=== PATIENT | female | born 1930 | race Caucasian/White ===

== ENCOUNTER 2016-08-21 18:36 | Inpatient (IN) | payer MEDICARE, OTHER ==
[~2016-08-21] VITALS: Ht 162.6 cm; Wt 41.5 kg
[~2016-08-21 18:36] MED LIST: ALLEGRA DPS180 MG PO; ASCORBIC ACID500 MG PO; CELEBREX DPS200 MG PO; COLACE-DPS100 MG PO; DAILY MULTIPLE1 EAC1 PO; DELTASONE DPS5 MG PO; DULCOLAX-DPS10 MG PR; DUONEB DPS3 ML IH; LASIX DPS20 MG PO; LISINOPRIL20 MG PO; LOVENOX DP40 MG/0.4 SQ; MAALOX DPS30 ML PO; METHOTREXATE2.5 MG PO; MIRALAX PACKET17 GM PO; MODAFINIL100 MG PO; MUCINEX600 MG PO; NITROSTAT0.4 MG SL; NUCYNTA50 MG PO; OMNICEF DPS300 MG PO; PLAQUENIL DPS200 MG PO; PREDNISONE5 MG PO; SENOKOT DPS8.6 MG PO; TYLENOL325 MG PO; VITAMIN D250000 UNIT PO; ZITHROMAX250 MG PO; ZOCOR DPS10 MG PO; ZOCOR10 MG PO
--- NOTE | 2016-08-22 06:20 | ER ---
ADMIT: 08/21/2016 RM/LOC: 520 [facility] MR#: [id number] [address] [address] SHREYASSUE Patel [address] [place] [address] Emergency Room Report SEX: F AGE: 86 : 1930 DATE: 08/21/2016 CHIEF COMPLAINT: Fall. HISTORY OF PRESENT ILLNESS: The patient is an 86-year-old female with rheumatoid arthritis, venous stasis disease legs associated with acute cellulitis followed by Dr. Guerra at the [facility] since being placed on Bactrim double-strength for cellulitis in her lower extremities, she has had increasing weakness, fatigue, and nausea. Dr. Guerra recommended stopping antibiotics today. She was walking to her bathroom tonight when she stumbled, fell, injuring her left ribs. Denies any head or neck injury, shortness of breath, or focal deficit. The patient does live alone with home health care. PAST MEDICAL HISTORY: ILLNESSES: Rheumatoid arthritis, narcolepsy, osteoporosis, vertebral compression fractures, hyperlipidemia, hyperparathyroidism, hypertension, DJD, low vitamin D, CHF, peripheral vascular disease, and venous stasis disease lower extremities. OPERATIONS: Right hip fracture status post total hip arthroplasty on the left, right hip pinning, tonsillectomy, and vertebroplasties. ALLERGIES: LISINOPRIL. MEDICATIONS: Please see nurse's MAR. SOCIAL HISTORY: , retired, lives alone with home health care. Nonsmoker and nondrinker. No illicit drugs. FAMILY HISTORY: Negative per chart review. REVIEW OF SYSTEMS: A 12-point review of systems negative for all other systems, illnesses, or operations except as outlined above. PHYSICAL EXAMINATION: VITAL SIGNS: Temp 98.1, pulse 101, respirations 16, BP 109/65, SaO2 of 93% on room air. GENERAL: Anxious, non-diaphoretic, without jaundice or icterus. HEENT: Normocephalic. No evidence of epistaxis, rhinorrhea, or otorrhea. NECK: Supple without lymphadenopathy or thyromegaly. CHEST: Clear. Breath sounds equal though diminished, exquisitely tender left lateral ribs. No evidence of flail chest. BACK: Erect. No CVA tenderness. EXTREMITIES: Pelvis nontender to compression or rock. Full range of motion of all extremities. Multiple contusions noted. Chronic venous stasis disease with cellulitis, lower extremities. NEUROLOGIC: EOMI. PERRLA. No evidence of drift, dysarthria, or ataxia. Gait is antalgic. MEDICAL DECISION MAKING: The patient did not tolerate road test due to hypotension and pain. Rib belt applied. Toradol, Dilaudid, and Zofran given IV ADMIT: 08/21/2016 RM/LOC: 520 [facility] MR#: [id number] [address] [place] [id number] SUE LITTLE [address] [place] [address] Emergency Room Report SEX: F AGE: 86 : 1930 with improvement of pain. Notified Dr. Kahn of admission, who requested floor to call for orders. CT chest showed nondisplaced left 6th and 7th rib fractures. No evidence of infiltrate. CBC remarkable for hemoglobin 10.6, WBC 11.4, lactic 1.8, CRP 1.01. UA pending. Creatinine 1.8, sodium 133. EKG showed sinus rhythm with right bundle-branch block, unchanged from previous. DIAGNOSES: 1. Mechanical fall. 2. Left posterior 6th and 7th rib fractures. 3. Osteoporosis. 4. Rheumatoid arthritis. 5. Venous stasis dermatitis with acute cellulitis, lower legs. RECOMMENDATIONS: Admit to inpatient telemetry for Dr. Kahn. ADMISSION/DISCHARGE CONDITION: Stable. The patient is a DNR. Dusty Hobbs MD/ raiza JOB #: [id number] CC: Lonnie Kahn MD, Attending Physician Lonnie Kahn MD, Family Physician
--- NOTE | 2016-08-25 17:48 | HP ---
ADMIT: 08/21/2016 RM/LOC: 520 [facility] [id number] [id number] [address] [address] SIDNEY SUE Kimberly [address] [place] [address] History and Physical SEX: F AGE: 86 : 1930 DATE OF SERVICE: CHIEF COMPLAINT: Nausea, vomiting, fall, and rib pain. HISTORY OF PRESENT ILLNESS: The patient is an 86-year-old female. She has past medical history of COPD, hypertension, hyperlipidemia, rheumatoid arthritis, on chronic immunosuppression with prednisone and methotrexate, who presents to [facility] Emergency Room after a fall at home. The patient had noted the last couple of days of nausea and vomiting, just not feeling well. She got up from the toilet and tripped the anterior left ribs on the bath tub. She had pain immediately, she was brought in to the emergency room. She was noted to be just mildly hypotensive. She was found to have some rib fractures posteriorly and was also noted to be in acute renal failure and she was admitted for further evaluation and treatment. This morning, the patient notes just does not feel hungry. The nausea and vomiting are better. No abdominal pain is noted. She does have that rib pain. Does hurt to take a deep breath because that does feel a little short of wind. No other bowel or bladder complaints are noted. She is continuing to see the Wound Care doctors in [place] and has noted problems with some infection of those legs, and recently was placed on Bactrim and notes started feeling bad shortly after taking that. PAST MEDICAL HISTORY: 1. COPD/emphysema. 2. Hypertension. 3. History of narcolepsy. 4. Hyperlipidemia. 5. History of right-sided ovarian mass/cyst. 6. Rheumatoid arthritis, on chronic immunosuppression with low-dose prednisone and methotrexate. 7. Osteoarthritis. 8. Fibromyalgia. 9. Osteoporosis with prior compression fracture, status post vertebroplasty. 10.Vitamin D deficiency. 11.Hyperparathyroidism, status post parathyroid adenoma resection in 2003. 12.History of prior pelvic fracture. 13.Prior history of tobacco abuse. 14.History of TIA. 15.History of lower extremity nonhealing wounds. Follows with Wound Care doctors out of [place]. ALLERGIES: SHE HAS ALLERGIES TO BACTRIM, PENICILLIN, AND TRAMADOL. HOME MEDICATIONS: 1. Lasix. 2. Modafinil. 3. MiraLax. 4. Prednisone. 5. Adore. ADMIT: 08/21/2016 RM/LOC: 520 [facility] MR#: [id number] [address] [address] SUE LITTLE [address] [place] [address] History and Physical SEX: F AGE: 86 : 1930 6. Vitamin C. 7. Probiotic. 8. Multivitamin. 9. Mucinex. 10.Zocor. 11.DuoNeb. 12.Methotrexate. 13.Vitamin D. 14.Tylenol. 15.Milk of Mag. 16.Saline. 17.Colace. 18.Guaifenesin with codeine. 19.Antifungal cream. 20.Aloe Howell. SOCIAL HISTORY: She lives at home. Prior smoker. Nondrinker. FAMILY HISTORY: Noncontributory. REVIEW OF SYSTEMS: As noted above. All other systems are reviewed and are negative. PHYSICAL EXAMINATION: VITAL SIGNS: 93.3, 79, 20, 118/58, 92% on couple of liters by nasal cannula. GENERAL: This is an elderly female. She is thin, frail appearing. She is in no apparent distress. She is awake. She is oriented x3, cooperative with examiner. HEENT: Normocephalic and atraumatic. Mucous membranes are moist. NECK: Supple. LUNGS: She is little diminished at the bases and is obviously splinting when she takes deep breaths. HEART: Regular to me right now. ABDOMEN: Soft, nontender, nondistended. Positive bowel sounds throughout. EXTREMITIES: She has no significant edema, but her calves and shins are dressed secondary to her chronic wounds, those were not addressed at this time. NEUROLOGIC: Intact. No focal deficits are noted. LABORATORY AND X-RAY DATA: Lab work shows a hemoglobin of 10.6, white count 11.4, and 219,000 platelets. Sodium 133, potassium 4.5, her BUN is 24, creatinine 1.8 that is up from a baseline of around 0.9 to 1, her bicarb is 26. CT scan of the chest without contrast showed chronic parenchymal lung findings with fibrotic and emphysematous changes. There is some prior granulomatous disease. There are fractures to the left posterolateral 6th and 7th ribs. No pneumothorax was noted. ASSESSMENT AND PLAN: ADMIT: 08/21/2016 RM/LOC: 520 [facility] MR#: [id number] [address] [place] [id number] SUE LITTLE [address] [place] [address] History and Physical SEX: F AGE: 86 : 1930 1. Nausea, vomiting, stomach upset, likely secondary to Bactrim. 2. Acute renal failure secondary to volume depletion and Bactrim. 3. Accidental fall. 4. Left posterior 6th and 7th rib fractures. 5. Lower extremity chronic wounds with questionable history of cellulitis. 6. Chronic obstructive pulmonary disease/emphysema. At this time, plan on hydrating the patient up, holding any nephrotoxins. Plan on antiemetics if needed. We will watch her creatinine closely. We will have PT and OT see her. We will plan on aggressive pulmonary toilet given her history of lung disease and now these rib fractures. We really need to make sure she does not develop a pneumonia after this. We will have Wound Care see her for those lower extremity wounds. With some her blood pressure being low, we will plan on a little bit more aggressive steroid dosing while she is here. Her blood pressure seem better after just a little bit of fluid overnight probably and if she is eating and drinking well, we will stop those fluids. We will follow closely as an inpatient. Lonnie Kahn MD/ raiza JOB #: [id number] CC: Lonnie Kahn MD, Attending Physician Lonnie Kahn MD, Family Physician
[2016-08-25] MEDS ORDERED: MUCINEX600 MG PO (19:29)
[2016-08-25] MEDS ORDERED: MIRALAX PACKET17 GM PO (19:29)
[2016-08-25] MEDS ORDERED: PROVIGIL200 MG PO (19:29)
[2016-08-25] MEDS ORDERED: ALLEGRA DPS180 MG PO (19:29)
[2016-08-25] MEDS ORDERED: ASCORBIC ACID500 MG PO (19:29)
[2016-08-25] MEDS ORDERED: ZOCOR DPS10 MG PO (19:30)
[2016-08-25] MEDS ORDERED: MILK OF MAGNESI10 ML PO (19:30)
[2016-08-25] MEDS ORDERED: MAALOX DPS30 ML PO (19:30)
[2016-08-25] MEDS ORDERED: DUONEB DPS3 ML IH ×2 (19:30→19:31)
[2016-08-25] MEDS ORDERED: COLACE-DPS100 MG PO (19:30)
[2016-08-25] MEDS ORDERED: OCEAN NASAL MIS45 ML NS (19:31)
[2016-08-25] MEDS ORDERED: SURFAK DPS240 MG PO (19:31)
[2016-08-25] MEDS ORDERED: TYLENOL DPS325 MG PO (19:35)
[2016-08-25] MEDS ORDERED: NITROSTAT0.4 MG SL (19:35)
--- NOTE | 2016-09-01 16:21 | DS ---
ADMIT: 08/21/2016 RM/LOC: 520 [facility] MR#: [id number] [address] [address] SIDNEY SUE Kimberly [address] [place] [address] Discharge Summary SEX: F AGE: 86 : 1930 ADMISSION DATE: 08/21/2016 DISCHARGE DATE: 08/24/2016 DISCHARGE DIAGNOSES: 1. Accidental fall. 2. Left posterior rib fractures. 3. Nausea and vomiting secondary to Bactrim. 4. Hypotension, resolved. 5. Acute renal failure secondary to volume depletion and Bactrim. 6. COPD (chronic obstructive pulmonary disease)/emphysema. 7. Hypoxic respiratory failure secondary to COPD (chronic obstructive pulmonary disease)/emphysema as well as splinting due to pain with respirations. 8. Small bilateral pleural effusions. 9. Chronic diastolic heart failure. 10.Rheumatoid arthritis on chronic immunosuppression with steroids and methotrexate. 11.Lower extremity nonhealing wounds. CONSULTATIONS: None. PROCEDURES: None. REASON FOR ADMISSION: A very pleasant, 86-year-old female, complex past medical history, presented to the [facility] emergency room on the day of admission with complaints of a fall at home. Patient had been nauseated, vomiting, not feeling well since receiving an antibiotics from our agriculture specialist and noted she tripped on her way into the bathroom. She fell striking her back and had significant pain. She was seen and evaluated in the emergency room. She was also noted there to be in acute renal failure, nauseated and vomiting and was a little hypotensive and was admitted for further evaluation and treatment. For complete details, please see H and P dictated on the day of admission. HOSPITAL COURSE: At the time of admission, the patient was placed in a telemetry bed. Pain control was given. She was noted to be hypoxic and splinting secondary to her rib fractures. She was noted to be in acute renal failure and all of her nephrotoxins were stopped. She was given many stress dose steroids through the IV and some IV fluids helped out with her blood pressures. Her creatinine slowly improved. She developed some small bilateral pleural effusions due to mild fluid overload. Her oxygen requirements improved. She did well with incentive spirometer. Her nausea ADMIT: 08/21/2016 RM/LOC: 520 [facility] MR#: [id number] [address] [address] YOSEFSUE CANSECO [facility] [place] [address] Discharge Summary SEX: F AGE: 86 : 1930 and vomiting improved as well and the Bactrim was stopped. As her creatinine improved, we did restart her on her home Lasix. Her blood pressures did well. Her steroids were switched from IV to p.o. prednisone with a taper, slowed the taper back down to her 5 mg daily dose. She was seen by PT and OT. We thought she was just a little too weak to go home and plans were made for retirement/rehab placement. She ambulated and ate but well but was still thought to need rehab but she was ready for discharge on 08/24. Discharge medications are found on her discharge medication list. Discharge activity is as tolerated per Physical Therapy and Occupational Therapy. Discharge diet is a 2 g sodium diet as tolerated. She will have follow up with me in the next couple of weeks. She will follow up with her wound care doctors on 08/25 and will follow her along closely during her rehab processes. Lonnie Kahn MD/ jeannieg JOB #: [id number] CC: Lonnie Kahn MD, Attending Physician Lonnie Kahn MD, Family Physician
[2016-12-02] MEDS ORDERED: CULTURELLE1 CAP PO (17:56)
[2016-12-02] MEDS ORDERED: LASIX DPS40 MG PO (17:56)
[2016-12-02] MEDS ORDERED: DELTASONE DPS5 MG PO (17:56)
[2016-12-02] MEDS ORDERED: COLACE-DPS100 MG PO ×2 (17:57→17:58)
[2016-12-02] MEDS ORDERED: MAALOX DPS30 ML PO ×2 (17:57→17:59)
[2016-12-02] MEDS ORDERED: MUCINEX600 MG PO ×2 (17:57→17:59)
[2016-12-02] MEDS ORDERED: DUONEB DPS3 ML IH ×2 (17:57→17:58)
[2016-12-02] MEDS ORDERED: DUONEB DPS3 ML PO (17:58)
[2016-12-02] MEDS ORDERED: MILK OF MAGNESI10 ML PO ×2 (17:58→17:59)
[2016-12-02] MEDS ORDERED: MIRALAX PACKET17 GM PO (17:59)
[2016-12-02] MEDS ORDERED: NITROSTAT0.4 MG SL (18:00)
[2016-12-02] MEDS ORDERED: PROBIOTIC1 EAC1 PO (18:00)
[2016-12-02] MEDS ORDERED: OCEAN NASAL MIS45 ML NS (18:00)
[2016-12-02] MEDS ORDERED: TYLENOL DPS325 MG PO (18:01)
[2016-12-02] MEDS ORDERED: MICATIN14 GM TP (18:01)
[2016-12-02] MEDS ORDERED: VITAMIN D50000 UNI1 PO (18:02)
[2016-12-02] MEDS ORDERED: ASCORBIC ACID500 MG PO (18:02)
[2016-12-02] MEDS ORDERED: OMNICEF DPS300 MG PO (18:03)
[2016-12-02] MEDS ORDERED: ZOCOR DPS10 MG PO (18:03)
== END 2016-08-24 13:19 | DRG 682 ==
LOC: ER 18:36 → 5MS 21:25
PROVIDERS: ADMIT Internal Medicine
DX: N17.9 Acute kidney failure, unspecified (principal); J96.91 Respiratory failure, unspecified with hypoxia; I95.9 Hypotension, unspecified; S22.42XA Multiple fractures of ribs, left side, initial encounter for closed fracture; I11.0 Hypertensive heart disease with heart failure; L03.115 Cellulitis of right lower limb; I50.32 Chronic diastolic (congestive) heart failure; L03.116 Cellulitis of left lower limb; J44.9 Chronic obstructive pulmonary disease, unspecified; Y92.002 Bathroom of unspecified non-institutional (private) residence as the place of occurrence of the external cause; W18.30XA Fall on same level, unspecified, initial encounter; T37.0X5A Adverse effect of sulfonamides, initial encounter; E86.9 Volume depletion, unspecified; M06.9 Rheumatoid arthritis, unspecified; G47.419 Narcolepsy without cataplexy; M79.7 Fibromyalgia; E55.9 Vitamin D deficiency, unspecified; M81.0 Age-related osteoporosis without current pathological fracture; E78.5 Hyperlipidemia, unspecified; E21.3 Hyperparathyroidism, unspecified; M19.90 Unspecified osteoarthritis, unspecified site; I45.10 Unspecified right bundle-branch block; I73.9 Peripheral vascular disease, unspecified; Z96.642 Presence of left artificial hip joint; Z79.52 Long term (current) use of systemic steroids; Z87.891 Personal history of nicotine dependence; Z86.73 Personal history of transient ischemic attack (TIA), and cerebral infarction without residual deficits; Z66 Do not resuscitate

== ENCOUNTER → 2016-08-29 | Outpatient (CLI) | payer OTHER, MEDICARE ==
[~2016-08-29] MED LIST changes: +CULTURELLE1 CAP PO; +DUONEB DPS3 ML PO; +LASIX DPS40 MG PO; +MICATIN14 GM TP; +MILK OF MAGNESI10 ML PO; +OCEAN NASAL MIS45 ML NS; +PROBIOTIC1 EAC1 PO; +PROVIGIL200 MG PO; +SURFAK DPS240 MG PO; +TYLENOL DPS325 MG PO; +VITAMIN D50000 UNI1 PO
== END | disposition home or self-care (01) ==
LOC: RAD.S 08:00
DX: S22.32XA Fracture of one rib, left side, initial encounter for closed fracture (principal); J98.11 Atelectasis; R91.8 Other nonspecific abnormal finding of lung field; X58.XXXA Exposure to other specified factors, initial encounter

== ENCOUNTER → 2016-11-07 | Outpatient (CLI) | payer OTHER, MEDICARE | END | disposition home or self-care (01) | LOC: RAD.S 10:52 | DX: R13.12 Dysphagia, oropharyngeal phase (principal) ==